=== PATIENT | female | born 1945 | race Caucasian/White ===

== ENCOUNTER → 2022-07-19 | Outpatient (CLI) | payer MEDICARE, OTHER | LOC: ORTHO 11:29 | PROVIDERS: ATTEND Orthopaedic Surgery | DX: S52.501D Unspecified fracture of the lower end of right radius, subsequent encounter for closed fracture with routine healing (principal); X58.XXXD Exposure to other specified factors, subsequent encounter | CPT/HCPCS: 29075; G0463 ==

== ENCOUNTER → 2022-07-26 | Outpatient (CLI) | payer MEDICARE, OTHER ==
--- NOTE | 2022-07-26 14:45 | Diagnostic Imaging Report ---
INDICATION: Follow-up orthopedic assessment, fracture, pain COMPARISON: 07/17/2022 TECHNIQUE: 3 radiographs of the right wrist dated 07/26/2022 FINDINGS: Interval placement of cast material which limits evaluation underlying osseous structures. Previously noted distal radial fracture is again identified. Overall alignment appears similar to the prior examination. Difficult to evaluate for healing given overlying cast material. No new fracture or dislocation. IMPRESSION: Interval casting of previously noted recent distal radial fracture remaining in stable alignment without new acute osseous abnormality. Dictated by: Dictated on workstation # [id number]
== END ==
LOC: ORTHO 09:54
PROVIDERS: ATTEND Orthopaedic Surgery
DX: Z47.89 Encounter for other orthopedic aftercare (principal)
CPT/HCPCS: 73110; G0463; 99213

== ENCOUNTER → 2022-08-16 | Outpatient (CLI) | payer MEDICARE, OTHER ==
--- NOTE | 2022-08-16 15:21 | Diagnostic Imaging Report ---
INDICATION: Fracture follow-up, pain COMPARISON: 07/26/2022 TECHNIQUE: 3 radiographs of the right wrist dated 08/16/2022' FINDINGS: Interval removal of previously noted cast material. Previously noted distal radial fracture is again identified. Main fracture plane is transversely oriented, though there does appear to be a vertical component extending to the radiocarpal joint. Overall alignment is stable. Mild sclerosis is noted about the fracture planes. No new fracture or dislocation. No destructive osseous process. Scapholunate interval is within normal limits. IMPRESSION: Interval removal of cast with distal radial fracture again identified remaining in stable alignment. Mild sclerosis involving the distal radial fracture, which may relate to early healing. Recommend continued radiographic follow-up. No new acute osseous abnormality. Dictated by: Dictated on workstation # [id number]
== END ==
LOC: ORTHO 10:00
PROVIDERS: ATTEND Orthopaedic Surgery
DX: S52.531D Colles' fracture of right radius, subsequent encounter for closed fracture with routine healing (principal); X58.XXXD Exposure to other specified factors, subsequent encounter
CPT/HCPCS: 73110; G0463; 99213

== ENCOUNTER → 2022-09-13 | Outpatient (CLI) | payer MEDICARE, OTHER ==
--- NOTE | 2022-09-13 13:12 | Diagnostic Imaging Report ---
INDICATION: Right wrist pain COMPARISON: 08/16/2022 TECHNIQUE: 3 radiographs of the right wrist dated 09/13/2022. FINDINGS: Slightly increased sclerosis is noted involving previously noted distal radial fracture with alignment appearing stable. Fracture lucencies are minimally less, overall alignment is stable. No new fracture or dislocation. No destructive osseous process. IMPRESSION: Continued slight interval healing of previously noted distal radial fracture with alignment remaining stable without new acute osseous abnormality. Dictated by: Dictated on workstation # [id number]
== END ==
LOC: ORTHO 09:06
PROVIDERS: ATTEND Orthopaedic Surgery
DX: S52.501A Unspecified fracture of the lower end of right radius, initial encounter for closed fracture (principal); X58.XXXA Exposure to other specified factors, initial encounter
CPT/HCPCS: 73110; G0463; 99213

== ENCOUNTER → 2022-10-12 | Outpatient (CLI) | payer MEDICARE, OTHER | LOC: ORTHO 08:35 | PROVIDERS: ATTEND Orthopaedic Surgery | DX: S52.501D Unspecified fracture of the lower end of right radius, subsequent encounter for closed fracture with routine healing (principal); X58.XXXD Exposure to other specified factors, subsequent encounter | CPT/HCPCS: 99213 ==